=== PATIENT | female | born 1970 | race Caucasian/White ===

== ENCOUNTER 2016-07-02 13:31 | Emergency (ER) | payer SELFPAY ==
[~2016-07-02] VITALS: Ht 149.9 cm; Wt 71.4 kg
[~2016-07-02 13:31] MED LIST: MULT1TAB69 PO; OMEP20TA2 PO
[2016-07-02 13:34] VITALS: Ht 149.9 cm; Wt 71.4 kg
--- OUTSIDE RECORDS SUMMARY | 2016-07-02 13:36 | XMS REPORT ---
Author Author Iva Sears Organization [employer] Address Unknown Phone Unavailable Care Team Providers Care Transfer Controller Name Role Phone Iva Sears CP Unavailable Allergies, Adverse Reactions, Alerts Substance Reaction Event Type Morphine Sulfate swelling/vomiting Drug Allergy mushrooms swelling/vomiting Non Drug Allergy eggs swelling/vomiting Non Drug Allergy Problems Problem Type Condition Code Onset Dates Condition Status Assessment Migraine aura, persistent, intractable G43.519 Active Assessment Nonintractable epilepsy without status epilepticus, unspecified epilepsy type G40.909 Active Medications Medication Code System Code Instructions Start Date End Date Status Dosage Multi For Her [facility] [address] Orally not defined Excedrin Migraine [facility] [address]-45 250-250-65 MG Orally every 6 hrs 2 tablets as needed Levetiracetam [facility] [address]-05 500 MG Orally every 12 hrs September 19, 2015 1 tablet Procedures Procedure Coding System Code Date INJECTION (plus drug) CPT-4 78195 September 19, 2015 TORADOL 30MG CPT-4 J1885 September 19, 2015 PHENERGAN 25MG CPT-4 J2550 September 19, 2015 OFFICE VISIT, EST-LOW COMPLEXITY (15 MIN.) CPT-4 79983 September 19, 2015 Vital Signs Date/Time: September 19, 2015 Temperature 98.8 F Height 51 in Weight 157.0 lbs Blood Pressure Diastolic 92 mm Hg Blood Pressure Systolic 138 mm Hg Cardiac Monitoring Heart Rate 78 /min BMI 42.43 Index Respiratory Rate 16 /min Results No Known Results Summary Purpose [employer] Submission
--- OUTSIDE RECORDS SUMMARY | 2016-07-02 13:36 | XMS REPORT ---
Author Author Iva Sears [facility] [employer] Address Unknown Phone Unavailable Care Team Providers Care Jewel Setter Name Role Phone Iva Sears CP Unavailable Allergies No Known Allergies Problems No Known Problems Medications No Known Medications Results No Known Results Summary Purpose [employer] Submission
--- OUTSIDE RECORDS SUMMARY | 2016-07-02 13:36 | XMS REPORT ---
Author Author Iva Sears [facility] [employer] Address Unknown Phone Unavailable Care Team Providers Care Community Recreation Coordinator Name Role Phone Iva Sears CP Unavailable Allergies No Known Allergies Problems No Known Problems Medications No Known Medications Results No Known Results Summary Purpose [employer] Submission
--- OUTSIDE RECORDS SUMMARY | 2016-07-02 13:36 | XMS REPORT | Continuity of Care Document ---
Author Author [facility] Organization [facility] Address Unknown Phone Unavailable Care Team Providers Care Aerial Sprayer Name Role Phone JASON [place] Primary Care Physician [phone] Insurance Providers Payer Name Policy Number Subscriber Name Relationship [facility] [id number] Sally Qureshi Self / Same As Patient Chief Complaint and Reason for Visit Chief Complaint GI Complaint Reason for Visit Gastroenteritis Problems Medical Problems Problem Onset Date Status Blunt trauma of nose ~02/16/2014 Active Bronchitis Unknown Active Gastroenteritis Unknown Active Medications Medication Dose Route Sig Days/Qty Instructions Order Date Discontinued Date Status Multivitamin 1 Each ORAL DAILY 12/31/12 02/16/14 Discontinued [No Home Meds] 02/16/14 04/22/14 Discontinued Acetaminophen 1,000 Mg ORAL NEEDED 04/22/14 Active Promethazine/Codeine 5 Ml ORAL EVERY 4HRS PRN COUGH 120 Qty 04/22/14 08/16/14 Discontinued Azithromycin 250 Mg ORAL SEE INSTRUCTIONS 6 Qty Day One: Take 2 tablets by mouth Days Two-Five: Take 1 tablet by mouth 04/22/14 08/16/14 Discontinued Ondansetron Hcl 4 Mg ORAL EVERY 4HRS PRN NAUSEA/VOMITING 10 Qty Active Ketorolac Tromethamine 10 Mg ORAL EVERY 6 HOURS PRN PAIN 12 Qty Active Social History No social history. Hospital Discharge Instructions No hospital discharge instructions. Plan of Care Discharge Date 08/16/14 7:30am Disposition 01 HOME OR SELF-CARE Condition at Discharge Stable Instructions/Education Provided Gastroenteritis (ED) Prescriptions See Medications Section Referrals JASON [place] Additional Instructions/Education ED CARYN if any worse. Zofran, Toradol as directed. Follow up with your doctor in 2-3 days if not greatly improved. Some of your test results may not be complete prior to your leaving the Emergency Department. The Emergency Department is not authorized to give test results over the phone. Please contact the doctor's office listed in this packet of information for your final results. Follow up with your primary care physician or return to the Emergency Department for worsening or worrisome symptoms. * Emergency Department phone number: [phone], x [phone]* MEDICAL RECORD If you need copies of your X-rays, call [phone]. If you need copies of your medical record, including lab results, a signed authorization for release of records will be required. A telephone call for release of Health Information is not allowed. BILLING Billing can sometimes be confusing and frustrating. To help avoid confusion in the future, please take a moment to acquaint yourself with the billing parties for services. SERVICE BILLING LIBERTARIAN Emergency Room Services [facility] Physician Services [facility] X-rays [place] [facility] Patients will receive bills for services from the appropriate provider. If you have any questions about your [facility] bill, our staff will be happy to assist you. Please call [phone], and ask for the billing department. THANK YOU for choosing [facility] as your emergency care provider! Functional Status No functional status results. Allergies, Adverse Reactions, Alerts Allergen Type Severity Reaction Status Last Updated Morphine Allergy Unknown Active 08/01/11 Egg Yolk Allergy Active 12/31/12 MUSHROOM Allergy Active 12/31/12 Immunizations No immunization records. Vital Signs Acute Vital Signs Vital Response Date/Time Temperature (Fahrenheit) 97.6 Pulse 85 bpm Respirations 22 Height 4 ft 11 in Weight 155 lb Body Mass Index 31.0 kg/m^2 Results Test Source Date Result Interp. Ref. Range Comments Urine Collection Type August 16, 2014 6:50am Clean catch Urine collection method Clean Catch Urine Leukocyte Esterase August 16, 2014 6:50am Negative Negative Urine collection method Clean Catch Urine Urobilinogen August 16, 2014 6:50am 0.2 mg/dL 0.2-1.0 Urine collection method Clean Catch Urine Bilirubin August 16, 2014 6:50am Negative Negative Urine collection method Clean Catch Urine Nitrite August 16, 2014 6:50am Negative Negative Urine collection method Clean Catch Urine Ketones August 16, 2014 6:50am Negative Negative Urine collection method Clean Catch Urine RBC (Auto) August 16, 2014 6:50am Negative Negative Urine collection method Clean Catch Urine Glucose (UA) August 16, 2014 6:50am Negative Negative Urine collection method Clean Catch Urine Protein August 16, 2014 6:50am Negative Negative Urine collection method Clean Catch Urine Specific [place] August 16, 2014 6:50am 1.020 1.005-1.030 Urine collection method Clean Catch Urine pH August 16, 2014 6:50am 7.0 5.0 - 8.0 Urine collection method Clean Catch Urine Clarity August 16, 2014 6:50am Clear Urine collection method Clean Catch Urine Color August 16, 2014 6:50am Yellow Urine collection method Clean Catch Alanine Aminotransferase (ALT/SGPT) August 16, 2014 6:20am 22 U/L L 30-65 Albumin August 16, 2014 6:20am 3.8 g/dL N 3.4-5.0 Albumin/Globulin Ratio August 16, 2014 6:20am 1.187 N 1.1-1.8 Alkaline Phosphatase August 16, 2014 6:20am 58 U/L N 38-126 Amylase Level August 16, 2014 6:20am 58 U/L N 25-115 Anion Gap August 16, 2014 6:20am 12.3 MEQ/L N 3-15 Aspartate Amino Transf (AST/SGOT) August 16, 2014 6:20am 16 U/L N 15-37 BUN/Creatinine Ratio August 16, 2014 6:20am 18 N 10-20 Basophils # (Auto) August 16, 2014 6:20am 0.0 10^3uL Basophils (%) (Auto) August 16, 2014 6:20am 1 % N 0-2 Blood Urea Nitrogen August 16, 2014 6:20am 15 mg/dL N 7-18 C-Reactive Protein August 16, 2014 6:20am 1.20 mg/dL H 0.0-0.9 Calcium Level August 16, 2014 6:20am 9.1 mg/dL N 8.8-10.8 Calcium/Ionized Calcium Ratio August 16, 2014 6:20am 4.0 mg/dL N 3.8-4.6 Calculated Osmolality August 16, 2014 6:20am 277 mosm/L L 280-300 Carbon Dioxide Level August 16, 2014 6:20am 25 mmol/L N 22-29 Chloride Level August 16, 2014 6:20am 110 mmol/L H 98-108 Clostridium Difficile Toxin A & B December 19, 2012 6:00pm Negative Creatinine August 16, 2014 6:20am 0.84 mg/dL N 0.6-1.2 Eosinophils # (Auto) August 16, 2014 6:20am 0.1 10^3uL Eosinophils (%) (Auto) August 16, 2014 6:20am 2 % N 0-4 Estimat Glomerular Filtration Rate August 16, 2014 6:20am 89.5 Estimated GFR (Non- August 16, 2014 6:20am 74.0 Glucose Level August 16, 2014 6:20am 109 mg/dL N 70-110 Hematocrit August 16, 2014 6:20am 38.80 % N 35.00-45.00 Hemoglobin August 16, 2014 6:20am 13.5 g/dL N 12.0-15.5 Influenza Virus Type A Antibody April 22, 2014 11:47am Negative Influenza Virus Type B Antibody April 22, 2014 11:47am Negative Lipase August 16, 2014 6:20am 101 U/L N 23-300 Lymphocytes # (Auto) August 16, 2014 6:20am 3.0 X10^3 Lymphocytes (%) (Auto) August 16, 2014 6:20am 43 % N 20-46 Mean Corpuscular Hemoglobin August 16, 2014 6:20am 31.0 PG N 26.0-34.0 Mean Corpuscular Hemoglobin Concent August 16, 2014 6:20am 34.8 g/dL N 31.0-37.0 Mean Corpuscular Volume August 16, 2014 6:20am 89 FL N 80-100 Mean Platelet Volume August 16, 2014 6:20am 9.7 FL H 6.0-9.5 Monocytes # (Auto) August 16, 2014 6:20am 0.7 X10^3 Monocytes (%) (Auto) August 16, 2014 6:20am 10 % N 3-11 Neutrophils # (Auto) August 16, 2014 6:20am 3.1 X10^3 Neutrophils (%) (Auto) August 16, 2014 6:20am 45 % L 51-67 Platelet Count August 16, 2014 6:20am 244 10^3uL N 150-450 Potassium Level August 16, 2014 6:20am 4.0 mmol/L N 3.5-5.1 Red Blood Count August 16, 2014 6:20am 4.35 10^6uL N 4.00-5.00 Red Cell Distribution Width August 16, 2014 6:20am 12.5 % N 11.8-15.6 Sodium Level August 16, 2014 6:20am 143 mmol/L N 135-150 Total Bilirubin August 16, 2014 6:20am 0.3 mg/dL N 0.1-1.0 Total Creatine Kinase August 16, 2014 6:20am 86 U/L N 30-135 Total Protein August 16, 2014 6:20am 7.0 g/dL N 6.4-8.5 White Blood Count August 16, 2014 6:20am 6.92 10^3uL N 4.0-11.0 Procedures No known history of procedures. Encounters Encounter Location Date/Time Departed Emergency Room [facility] 08/16/14 5:19am Recent Diagnosis
--- OUTSIDE RECORDS SUMMARY | 2016-07-02 13:36 | XMS REPORT | Continuity of Care Document ---
Author Author [facility] Organization [facility] Address Unknown Phone Unavailable Support Name Relationship Address Phone ADRIANOSHY DEVLIN Bryce Caregiver [address] [place] [address] Unavailable MARY TONY MD Caregiver [address] [place] [address] [place] [address] Unavailable ARCADIO CALVO Next Of Kin [address] [place] [address] Insurance Providers Guarantor Sally Qureshi Address [address] [place] [address] Email [email or web address] Payer [employer] Other Policy Number [id number] Subscriber's Name Henok Qureshiise Relationship 18 Self Group Number [id number] Advance Directives Directive Response Recorded Date/Time Advanced Directives Type None 07/12/15 11:46pm Chief Complaint and Reason for Visit Chief Complaint General Reason for Visit [id number] Headache Problems Active Problems Medical Problem Onset Date Status Abdominal pain Unknown Acute Abnormal vaginal bleeding Unknown Acute Acute viral pharyngitis Unknown Acute Ankle sprain Unknown Acute Dysmenorrhea Unknown Acute Epigastric abdominal pain Unknown Acute Gastroenteritis Unknown Acute Headache Unknown Acute Intertrigo Unknown Acute Menorrhagia Unknown Acute Vomiting Unknown Acute Past Problems Medical Problem Onset Date History of epilepsy Unknown Medications Current Home Medications Medication Dose Units Route Directions Days Qty Instructions Start Date Multivitamin (Multivitamins) 1 Each Tablet 1 Tab Oral Daily 09/29 Omeprazole Magnesium (Prilosec Otc) 20 Mg Tablet. 1 Tab Oral Daily 03/17/15 Past Home Medications Medication Directions Ordered Status Acetaminophen (Tylenol Extra Strength) 500 Mg Tablet, 1-2 Tab Oral Every 6 Hours as needed for Pain 02/04/15 Discontinued Acetaminophen (Tylenol Extra Strength) 500 Mg Tablet, 2 Tab Oral Every 6 Hours as needed for Pain 09/29/14 Discontinued Benzonatate 100 Mg Capsule, 1 Cap Oral Every 8 Hours as needed for Cough Discontinued Ciprofloxacin Hcl 500 Mg Tablet, 1 Tab Oral Every 12 Hours 09/29/14 Discontinued Hydrocodone/Acetaminophen (Hydrocodon-Acetaminophen 5-325) 1 Each Tablet, 1 Tab Oral Every 6 Hours as needed for Pain 09/29/14 Discontinued Norethindrone (Norethindrone Acetate) 5 Mg Tablet, 1 Tab Oral Three Times A Day 09/29/14 Discontinued Ondansetron (Zofran Odt) 4 Mg Tab.rapdis, 4 Mg Oral Every 6 Hours as needed for Nausea &/Or Vomiting 01/11/15 Discontinued Promethazine Hcl/Codeine (Prometh-Codein 6.25-10 Mg/5 Ml) 5 Ml Syrup, 5 Ml Oral Every 6 Hours as needed for Cough 01/11/15 Discontinued Social History Social History Problem Response Recorded Date/Time Onset Date Status Hx Substance Use No 07/12/2015 11:58pm Not Applicable Not Applicable Hx Alcohol Use No 07/12/2015 11:58pm Not Applicable Not Applicable Has the pt used tobacco in the last 12 months Yes 09/30/2014 11:01am Not Applicable Not Applicable Tobacco Usage none 09/14/2014 10:54pm Not Applicable Not Applicable Query Response Start Date Stop Date Smoking Status Never smoker Hospital Discharge Instructions No hospital discharge instructions. Plan of Care Discharge Date 07/13/15 2:00am Disposition 01 DISCHARGED HOME, SELF-CARE Condition at Discharge Stable Instructions/Education Provided Seizure Disorder -- Adult Prescriptions See Medication Section Referrals SHY [place] Address: [address] [place] [id number] Note: Follow-up for reevaluation Care Plan and Goals Physician Care Plan Problem: Headache, not feeling well Goal: Follow up with primary care provider Instructions: Take medications and follow care plan as discussed/written Functional Status No functional status results. Allergies, Adverse Reactions, Alerts Allergen Type Severity Reaction Status Last Updated Mushrooms Allergy Unknown Active 07/12/15 Penicillin Allergy Unknown PER DR ORDER PAGE Active 07/12/15 Egg Derived Allergy Unknown Active 07/12/15 Morphine Allergy Unknown Active 07/12/15 ANYTHING EGG BASED Allergy Unknown Active 06/29/13 Immunizations Query Response on File Recorded Date/Time Hx Influenza Vaccination No 09/30/14 11:01am Hx Pneumococcal Vaccination No 09/30/14 11:01am Hx Influenza Vaccination No 09/30/14 11:01am Influenza Vaccine Hx ALLERGY TO EGGS 07/12/15 11:58pm Vital Signs Acute Vital Signs Vital Response Date/Time Temperature (Fahrenheit) 98.1 deg F (96.8 - 99.1) 07/12/2015 11:46pm Temperature (Calculated Celsius) 36.17386 degrees C (36.0 - 37.3) 07/12/2015 11:46pm Pulse Rate (adult) 81 bpm (60 - 100) 07/13/2015 1:56am Respiratory Rate 18 breaths/min (10 - 20) 07/13/2015 1:56am O2 Sat by Pulse Oximetry 100 % (90 - 100) 07/13/2015 1:56am Blood Pressure 153/97 mm Hg 07/13/2015 1:56am Height (Feet) 4 feet 07/12/2015 11:48pm Height (Inches) 11.00 inches 07/12/2015 11:48pm Weight (Kilograms) 71.000 kg 07/12/2015 11:48pm Body Mass Index (BMI) 31.0 07/12/2015 11:48pm Results Laboratory Results Test Name Result Units Flags Reference Collection Date/Time Result Date/ Time Comments White Blood Count 8.3 T/MM3 4.5-11.0 07/13/2015 12:07/13/2015 12: 28am Red Blood Count 4.50 M/MM3 4.00-5.20 07/13/2015 12:07/13/2015 12: 28am Hemoglobin 13.7 GM/DL 12-16 07/13/2015 12:07/13/2015 12:28am Hematocrit 40.9 % 36-46 07/13/2015 12:07/13/2015 12:28am Mean Corpuscular Volume 90.9 UM3 80-100 07/13/2015 12:07/13/2015 12:28am Mean Corpuscular Hemoglobin 30.4 UUG 26-34 07/13/2015 12:2015 12:28am Mean Corpuscular Hemoglobin Concent 33.5 GM/DL 31-37 07/13/2015 12:07/13/2015 12:28am RDW Standard Deviation 41.8 FL 36.9-50.2 07/13/2015 12:07/13/2015 12:28am Platelet Count 219 T/MM3 130-400 07/13/2015 12:07/13/2015 12:28am Mean Platelet Volume 10.0 UM3 9.4-12.4 07/13/2015 12:07/13/2015 12 :28am Neutrophils (%) (Auto) 52.3 % 33-66 07/13/2015 12:07/13/2015 12: 28am Lymphocytes (%) (Auto) 38.1 % 23-45 07/13/2015 12:07/13/2015 12: 28am Monocytes (%) (Auto) 7.8 % 0-9.0 07/13/2015 12:07/13/2015 12:28am Eosinophils (%) (Auto) 1.2 % 0-4 07/13/2015 12:07/13/2015 12:28am Basophils (%) (Auto) 0.5 % 0-2 07/13/2015 12:07/13/2015 12:28am Immature Granulocyte % (Auto) 0.1 % 0.0-0.5 07/13/2015 12:2015 12:28am Absolute Neutrophils (auto) 4.3 T/MM3 1.8-7.7 07/13/2015 12:2015 12:28am Absolute Lymphocytes (auto) 3.1 T/MM3 1-4.8 07/13/2015 12:2015 12:28am Absolute Monocytes (auto) 0.6 T/MM3 0-0.8 07/13/2015 12:2015 12:28am Absolute Eosinophils (auto) 0.1 T/MM3 0-0.5 07/13/2015 12:2015 12:28am Absolute Basophils (auto) 0.0 T/MM3 0-0.2 07/13/2015 12:2015 12:28am Absolute Immature Granulocyte (auto 0.01 T/MM3 0.00-0.03 07/13/2015 12: 07/13/2015 12:28am D-Dimer < 150 NG/ML 0-230 07/13/2015 12:07/13/2015 12:36am <230 NG/ML D-DU=PRESUMPTIVE NEGATIVE FOR PE OR DVT >230 NG/ML D-DU=ADDITIONAL EVAL FOR PE OR DVT RECOMMENDED Icterus Index < 2 0-7 07/13/2015 12:07/13/2015 12:39am Chemistry Specimen Hemolysis < 15 0-25 07/13/2015 12:07/13/2015 12:39am 0-25: Specimen Exhibited No Hemolysis. Turbidity < 20 0-20 07/13/2015 12:07/13/2015 12:39am Sodium Level 142 MEQ/L 134-144 07/13/2015 12:07/13/2015 12:39am Potassium Level 4.3 MEQ/L 3.6-5 07/13/2015 12:07/13/2015 12:39am Chloride Level 109 MEQ/L H 98-107 07/13/2015 12:07/13/2015 12:39am Carbon Dioxide Level 25 MEQ/L 22-30 07/13/2015 12:07/13/2015 12: 39am Anion Gap 8 MEQ/L 5-15 07/13/2015 12:07/13/2015 12:39am Blood Urea Nitrogen 18.0 MG/DL H 7-17 07/13/2015 12:07/13/2015 12: 39am Creatinine 0.8 MG/DL 0.7-1.2 07/13/2015 12:07/13/2015 12:39am BUN/Creatinine Ratio 23 RATIO 6-26 07/13/2015 12:07/13/2015 12: 39am Glomerular Filtration Rate Calc 78 07/13/2015 12:07/13/2015 12 :39am Glucose Level 116 MG/DL H 65-110 07/13/2015 12:07/13/2015 12:39am Calculated Osmolality 276 MOSM/KG 261-280 07/13/2015 12:2015 12:39am Calcium Level 9.6 MG/DL 8.4-10.2 07/13/2015 12:07/13/2015 12:39am Total Bilirubin 0.20 MG/DL 0.20-1.30 07/13/2015 12:07/13/2015 12: 39am Alkaline Phosphatase 49 U/L 38-126 07/13/2015 12:07/13/2015 12: 39am Total Protein 7.2 G/DL 6.3-8.2 07/13/2015 12:07/13/2015 12:39am Albumin 4.1 G/DL 3.5-5.0 07/13/2015 12:07/13/2015 12:39am Globulin 3.1 G/DL 2.4-3.6 07/13/2015 12:07/13/2015 12:39am Albumin/Globulin Ratio 1.3 RATIO 1.1-2.2 07/13/2015 12:07/13/2015 12:39am Aspartate Amino Transf (AST/SGOT) 14 U/L 14-36 07/13/2015 12:07/12 12:39am Alanine Aminotransferase (ALT/SGPT) 15 U/L 9-52 07/13/2015 12: 12:39am Troponin I < 0.012 ng/ml 0-0.12 07/13/2015 12:07/13/2015 12:51am Troponin values with a difference of 55% increase from orginal troponin value represent a true biological DELTA value. (%increase Calc=Orginal Troponin value, divided by subsequent Troponin value, multiplied by 100) Prolactin 9.9 NG/ML 07/13/2015 12:07/13/2015 12:56am Normal Female (Non-): 3.0-18.6 ng/ml; Males: 3.7-17.9 ng/ml Glucometer 151 mg/dL H 65-110 07/12/2015 11:48pm 07/12/2015 11:50pm Procedures No known history of procedures. Encounters Encounter Location Arrival/Admit Date Discharge/Depart Date Attending Provider Departed Emergency Room [facility] 07/12/15 11:42pm 07/13/15 2: 00am MARY TONY MD Recent Diagnosis
--- OUTSIDE RECORDS SUMMARY | 2016-07-02 13:36 | XMS REPORT | Continuity of Care Document ---
Author Author [facility] Address Unknown Phone Unavailable Allergies Active Description Code Type Severity Reaction Onset Reported/Identified Relationship to Patient Clinical Status Yes morphine [id number] Drug Allergy Unknown N/A 08/01/2011 Yes egg yolk [id number] Drug Allergy Unknown N/A 12/31/2012 Yes MUSHROOM MUSHROOM Unknown N/A 12/31/2012 Medications Problems Date Dx Coded Attending Type Code Diagnosis Diagnosed By 01/15/2013 KARL BIANCHI MD Ot 211.1 01/15/2013 KARL BIANCHI MD Ot 345.90 01/15/2013 KARL BIANCHI MD Ot 455.0 01/15/2013 KARL BIANCHI MD Ot 530.11 01/15/2013 KARL BIANCHI MD Ot 553.3 02/16/2014 SOPHIE PUENTE, COLEEN Ot 920 02/16/2014 SOPHIE PUENTE, COLEEN Ot E917.9 08/16/2014 RAHUL ARMENDARIZ MD Ot 558.9 08/16/2014 RAHUL ARMENDARIZ MD Ot 787.01 Procedures Results Encounters ACCT No. Visit Date/Time Discharge Status Pt. Type Provider Facility Loc./Unit Complaint [id number] 08/16/2014 05:19:00 2014 07:30:00 DIS Emergency RAHUL ARMENDARIZ MD [facility] ED [id number] 02/16/2014 20:09:00 2013 22:05:00 DIS Emergency SOPHIE PUENTE, COLEEN [facility] ED [id number] 01/15/2013 09:34:00 2012 12:20:00 DIS Outpatient KARL BIANCHI MD [facility] [id number] 12/21/2012 10:55:00 2012 23:59:59 CLS Outpatient [id number] 04/22/2014 10:30:00 Document Registration
--- OUTSIDE RECORDS SUMMARY | 2016-07-02 13:36 | XMS REPORT | Continuity of Care Document ---
Author Author [facility] Organization [facility] Address Unknown Phone Unavailable Care Team Providers Care Brand Mgr Name Role Phone JASON [place] Primary Care Physician [phone] Insurance Providers Payer Name Policy Number Subscriber Name Relationship [facility] [id number] Sally Qureshi Self / Same As Patient Chief Complaint and Reason for Visit Chief Complaint Respiratory Complaint Reason for Visit Bronchitis Problems Medical Problems Problem Onset Date Status Blunt trauma of nose ~02/16/2014 Active Bronchitis Unknown Active Medications Medication Dose Route Sig Days/Qty Instructions Order Date Discontinued Date Status Multivitamin 1 Each ORAL DAILY 12/31/12 02/16/14 Discontinued [No Home Meds] 02/16/14 04/22/14 Discontinued Acetaminophen 1,000 Mg ORAL NEEDED 04/22/14 Active Promethazine/Codeine 5 Ml ORAL EVERY 4HRS PRN COUGH 120 Qty 04/22/14 Active Azithromycin 250 Mg ORAL SEE INSTRUCTIONS 6 Qty Day One: Take 2 tablets by mouth Days Two-Five: Take 1 tablet by mouth 04/22/14 Active Social History No social history. Hospital Discharge Instructions No hospital discharge instructions. Plan of Care Discharge Date 04/22/14 1:46pm Disposition 01 HOME OR SELF-CARE Condition at Discharge Stable Instructions/Education Provided Acute Bronchitis (ED) Prescriptions See Medications Section Referrals JASON [place] Additional Instructions/Education Zpack as directed Phenergan with codeine - 1 teaspoon every 4-6 hour as needed for cough Albuterol inhaler 1-2 puffs every 6 hours as needed Return if symptoms worsen Some of your test results may not [...] worrisome symptoms. * Emergency Department phone number: [phone], x [phone]* MEDICAL RECORD If you need copies of your X-rays, call [phone] x [phone]. If you need copies of [...] the billing parties for services. [employer] Emergency Room Services [facility] Physician Services [facility] X-[facility] [place] [facility] Patients will receive bills for services from the appropriate provider. If you have any questions about your [facility] bill, our staff will be happy to assist you. Please call [phone], and ask for the billing department. THANK YOU for choosing [facility] as your emergency care provider! Functional Status No functional status results. Allergies, Adverse Reactions, Alerts Allergen Type Severity Reaction Status Last Updated Morphine Allergy Unknown Active 08/01/11 Egg Yolk Allergy Active 12/31/12 MUSHROOM Allergy Active 12/31/12 Immunizations No immunization records. Vital Signs Acute Vital Signs Vital Response Date/Time Temperature (Fahrenheit) 98.1 Pulse 120 bpm Respirations 22 Height 4 ft 11 in Weight 152 lb Body Mass Index 30.0 kg/m^2 Results Test Source Date Result Interp. Ref. Range Comments Albumin/Globulin Ratio April 22, 2014 11:46am 1.375 N 1.1-1.8 Albumin April 22, 2014 11:46am 4.4 g/dL N 3.4-5.0 Total Protein April 22, 2014 11:46am 7.6 g/dL N 6.4-8.5 Alanine Aminotransferase (ALT/SGPT) April 22, 2014 11:46am 21 U/L L 30-65 Aspartate Amino Transf (AST/SGOT) April 22, 2014 11:46am 16 U/L N 15- 37 Alkaline Phosphatase April 22, 2014 11:46am 63 U/L N 38-126 Total Bilirubin April 22, 2014 11:46am 0.4 mg/dL N 0.1-1.0 Calcium/Ionized Calcium Ratio April 22, 2014 11:46am 4.0 mg/dL N 3.8- 4.6 Calcium Level April 22, 2014 11:46am 9.4 mg/dL N 8.8-10.8 Calculated Osmolality April 22, 2014 11:46am 276 mosm/L L 280-300 Glucose Level April 22, 2014 11:46am 104 mg/dL N 70-110 Estimated GFR (Non- April 22, 2014 11:46am 65.3 Estimat Glomerular Filtration Rate April 22, 2014 11:46am 79.0 BUN/Creatinine Ratio April 22, 2014 11:46am 17 N 10-20 Creatinine April 22, 2014 11:46am 0.94 mg/dL N 0.6-1.2 Blood Urea Nitrogen April 22, 2014 11:46am 16 mg/dL N 7-18 Anion Gap April 22, 2014 11:46am 14.4 MEQ/L N 3-15 Carbon Dioxide Level April 22, 2014 11:46am 25 mmol/L N 22-29 Chloride Level April 22, 2014 11:46am 107 mmol/L N 98-108 Potassium Level April 22, 2014 11:46am 4.2 mmol/L N 3.5-5.1 Sodium Level April 22, 2014 11:46am 142 mmol/L N 135-150 Influenza Virus Type B Antibody April 22, 2014 11:47am Negative Influenza Virus Type A Antibody April 22, 2014 11:47am Negative Basophils # (Auto) April 22, 2014 11:46am 0.1 10^3uL Basophils (%) (Auto) April 22, 2014 11:46am 1 % N 0-2 Clostridium Difficile Toxin A & B December 19, 2012 6:00pm Negative Eosinophils # (Auto) April 22, 2014 11:46am 0.1 10^3uL Eosinophils (%) (Auto) April 22, 2014 11:46am 2 % N 0-4 Hematocrit April 22, 2014 11:46am 41.40 % N 35.00-45.00 Hemoglobin April 22, 2014 11:46am 14.1 g/dL N 12.0-15.5 Lymphocytes # (Auto) April 22, 2014 11:46am 2.0 X10^3 Lymphocytes (%) (Auto) April 22, 2014 11:46am 30 % N 20-46 Mean Corpuscular Hemoglobin April 22, 2014 11:46am 29.9 PG N 26.0- 34.0 Mean Corpuscular Hemoglobin Concent April 22, 2014 11:46am 34.1 g/dL N 31.0-37.0 Mean Corpuscular Volume April 22, 2014 11:46am 88 FL N 80-100 Mean Platelet Volume April 22, 2014 11:46am 10.0 FL H 6.0-9.5 Monocytes # (Auto) April 22, 2014 11:46am 0.5 X10^3 Monocytes (%) (Auto) April 22, 2014 11:46am 8 % N 3-11 Neutrophils # (Auto) April 22, 2014 11:46am 4.0 X10^3 Neutrophils (%) (Auto) April 22, 2014 11:46am 60 % N 51-67 Platelet Count April 22, 2014 11:46am 293 10^3uL N 150-450 Red Blood Count April 22, 2014 11:46am 4.71 10^6uL N 4.00-5.00 Red Cell Distribution Width April 22, 2014 11:46am 12.2 % N 11.8- 15.6 White Blood Count April 22, 2014 11:46am 6.74 10^3uL N 4.0-11.0 Procedures No known history of procedures. Encounters Encounter Location Date/Time Departed Emergency Room [facility] 04/22/14 10:31am Recent Diagnosis
--- NOTE | 2016-07-02 13:44 | NUR ---
HIPOLITO LORENZANA IN
[2016-07-02] MEDS ORDERED: NORMAL SALINE 1,000 ML IV ONE (13:45)
[2016-07-02] MEDS ORDERED: KETOROLAC 30mg/ml INJECTION IV ONE (13:45)
--- NOTE | 2016-07-02 13:51 | ERPDOC ---
Departure Disposition Decision Date: July 02, 2016 Disposition Decision Time: 15:46 Disposition: 01 DISCHARGED HOME, SELF-CARE Impression Impression Impression: Primary Impression: Seizure Additional Impression: Contusion of rib Encounter type: initial encounter Laterality: right Qualified Codes: S20.211A - Contusion of right front wall of thorax, initial encounter Severity: Moderate Condition: Stable Seen By: Mid-level only Referrals: CHEYANNE WELLS APRN (Family) Patient Instructions: Contusion in Adults (ED) Problems/Meds/Labs Reviewed?: Yes Medications reviewed and manag: Yes Additional Instructions: The xrays today do not show a fracture. Your labs today appear normal as well. I do want you to go home and rest today. Make sure that you are drinking plenty of fluids. May use Ibuprofen and the Hyampom as needed for pain at home. If you have any further issues/concerns then please follow up with your primary care provider for reevaluation. Follow up care ordered?: Yes Mental Status: Alert Scripts Hydrocodone/Acetaminophen (Hyampom 5-325 Tablet) 5-325 Tablet 1 TAB PO Q6H Y for PAIN, #12 TAB 0 Refills Prov: USAMA CRUZ Sonny LORENZANA 07/02/16 HPI - General Medical General Chief Complaint: Seizure Stated Complaint: SEIZURE , FALL Time Seen by Provider: 13:39 Source: patient Exam Limitations: no limitations HPI - General Medical Initial Comments She has a history of seizures in the past. Her seizure dog today was very active so she was trying to get to the couch to lay down. Just remembers her legs getting weak and then waking up on the floor. She thinks that she hit her right side on the cough. Is having pain in the back as well as the right ribs with taking a deep breath. Has been taking her seizure medication as prescribed and has not felt unwell lately at all. Occurred At: home Onset: Rapid Duration: 1 hr Severity: moderate Associated Symptoms: malaise, seizure, weakness, DENIES: chest pain, cough, diaphoresis, fever/chills, headaches, loss of appetite, nausea/vomiting, rash, shortness of breath, syncope Hx of Similar Symptoms: No Allergies: Coded Allergies: Egg Derived (Verified Allergy, Unknown, 07/02/16) Mushrooms (Verified Allergy, Unknown, 07/02/16) Penicillins (Verified Allergy, Unknown, PER ORDER PAGE, 07/02/16) morphine (Verified Allergy, Unknown, 07/02/16) Uncoded Allergies: ANYTHING EGG BASED (Allergy, Unknown, 06/29/13) Past History Patient Surgical History Hysterectomy Nasal surgery. Adenoidectomy Past Medical History Respiratory: asthma GI: GERD Neurological: seizures Surgical History General: appendix Reproductive/: , hysterectomy Vaccines Hx Influenza Vaccination: No Hx Pneumococcal Vaccination: No Review of Systems Constitutional Constitutional: dizziness, fatigue, weakness, DENIES: chills, fever Eyes Vision: DENIES: blurring, double vision ENMT Ears: DENIES: drainage, pain Sinuses: DENIES: congestion, rhinorrhea Mouth/Throat: DENIES: painful swallowing, scratchy throat, sore throat Cardiovascular Cardiac: DENIES: chest pain, orthopnea Rhythm/Rate: DENIES: irregular beat, palpitations Pulmonary Respiratory: DENIES: cough, dyspnea, sputum, tachypnea GI Upper Abdomen: DENIES: nausea, pain, vomiting Lower Abdomen: DENIES: constipation, diarrhea, pain Integumentary Skin: DENIES: rash Neurological General: DENIES: headache, numbness, tingling, weakness Physical Exam General General Nourishment: well nourished, well developed, appears stated age, no acute distress, adult General Body Habitus: well groomed Vitals and Pain First Documented Vital Signs Date Time Temp Pulse Resp B/P Pulse Ox O2 Delivery O2 Flow Rate FiO2 07/02/16 13:34 97.8 83 14 158/60 99 Room Air Weight: Kilograms: Height (feet): 4 Height (inches): 11.00 Triage Pain Scale: RN VS reviewed by Provider: Yes Normal Exams: Head: Normocephalic w/o trauma Eyes: Pupils are PERRLA w/ EOMI, No scleral icterus, irritation, or foreign bodies noted ENMT: No facial trauma, nasal exudates, pharyngeal erythema, or exudates are noted Neck: Full range of motion, without adenopathy, JVD, bruits or thyromegaly Chest/Resp: Clear all browne, with good airflow, and symmetry bilaterally CV: Regular rate and rhythm, without murmur or gallop, Pulses 2+ all extremities, capillary refill, <2 seconds all ext., no pedal edema noted Abdomen: Bowel sounds positive, soft, non-tender, non-distended, no hepatosplenomegaly, masses or bruits noted Lymphatic: No lymphadenopathy, or lymphedema noted Integumentary: No rashes, hives, or bruising noted Neurologic: Patient is alert, and oriented, cranial nerves, motor/sensory/ cerebellar, exams w/o gross deficits, to observation Psychiatric: Patient exhibits, appropriate attention, emotion and affect Respiratory (brief) Respiratory: FOUND: tenderness (TTP along the thoracic spine but without TTP along the cervical spine or the lumbar spine. She is tender all over the posterior and anterior right ribs as well. No other injuries noted.) Differential Diagnoses Considering: Hypo/Hyperglycemia, Hypo/Hyperkalemia, Hypo/Hypernatremia, Medication Effect, Other (rib fracture, spinal fracture) Progress Results/Orders Orders Procedure Category Date Status Time Thoracic Spine RAD 07/02/16 Resulted Series, 3 View Ribs Right With Ap RAD 07/02/16 Resulted Chest Cbc W/Auto LAB 07/02/16 Complete Diff-Reflex Manual Cmp - Comprehensive LAB 07/02/16 Complete Metabolic Iv Lock (Ed Only) EDM 07/02/16 Transmitted 13:45 Normal Saline (Normal PHA 07/02/16 Complete Saline Iv) 13:45 Ketorolac (Toradol) PHA 07/02/16 Complete 13:45 Ua, Dip Wreflex LAB 07/02/16 Complete [employer] 15:29 Lab Results Laboratory Tests Test 07/02/16 13:59 07/02/16 15:30 White Blood Count 7.0T/MM3 Red Blood Count 4.35M/MM3 Hemoglobin 13.2GM/DL Hematocrit 39.3% Mean Corpuscular Volume 90.3UM3 Mean Corpuscular Hemoglobin 30.3UUG Mean Corpuscular Hemoglobin Concent 33.6GM/DL RDW Standard Deviation 41.9FL Platelet Count 217T/MM3 Mean Platelet Volume 9.8UM3 Immature Granulocyte % (Auto) 0.1% Neutrophils (%) (Auto) 51.3% Lymphocytes (%) (Auto) 41.5% Monocytes (%) (Auto) 5.7% Eosinophils (%) (Auto) 1.0% Basophils (%) (Auto) 0.4% Absolute Immature Granulocyte (auto 0.01T/MM3 Absolute Neutrophils (auto) 3.6T/MM3 Absolute Lymphocytes (auto) 2.9T/MM3 Absolute Monocytes (auto) 0.4T/MM3 Absolute Eosinophils (auto) 0.1T/MM3 Absolute Basophils (auto) 0.0T/MM3 Turbidity < 20 Sodium Level 146MEQ/L Potassium Level 4.4MEQ/L Chloride Level 112MEQ/L Carbon Dioxide Level 23MEQ/L Anion Gap 11MEQ/L Blood Urea Nitrogen 20.0MG/DL Creatinine 0.8MG/DL Glomerular Filtration Rate Calc 78 BUN/Creatinine Ratio 25RATIO Glucose Level 94MG/DL Calculated Osmolality 284MOSM/KG Calcium Level 9.4MG/DL Total Bilirubin 0.50MG/DL Icterus Index < 2 Aspartate Amino Transf (AST/SGOT) 12U/L Alanine Aminotransferase (ALT/SGPT) 26U/L Alkaline Phosphatase 47U/L Total Protein 6.5G/DL Albumin 3.7G/DL Globulin 2.8G/DL Albumin/Globulin Ratio 1.3RATIO Chemistry Specimen Hemolysis < 15 Urine Collection Type Cleancatch-midstream Urine Color Yellow Urine Turbidity Clear Urine pH 7.0 Urine Specific [place] <=1.005 Urine Protein Negative Urine Glucose (UA) Negative Urine Ketones Negative Urine Blood Negative Urine Nitrite Negative Urine Bilirubin Negative Urine Urobilinogen 0.2EU/DL Urine Leukocyte Esterase Negative Urinalysis Comment Microscopic not ind. Medications Current ED Medications Sodium Chloride (Normal Saline IV) 1,000 ml @ 1,000 mls/hr Q1H ONCE IV Last administered on 07/02/16 14:17; Start 07/02/16 at 13:45; Stop 07/02/16 at 14:44; Status DC Ketorolac Tromethamine (Toradol) 30 mg O ONCE IV Last administered on t 14:17; Start 07/02/16 at 13:45; Stop 07/02/16 at 13:47; Status DC Progress Progress Xrays today are normal. CBC, BMP, and UA are normal as well. Her pain is improved with the toradol. Will go ahead and let her go home. She will continue to take her home medications. Will go ahead and give her some Hyampom for the pain and have her rest. FU with her PCP if any further issues/concerns. Xray Xray #1: Reason for Exam: right rib pain Xray: Ribs R Interpretation: Normal Xray #2: Reason for Exam: back pain post fall Xray: T-Spine Interpretation: Normal USAMA CRUZ APRN July 02, 2016 13:51
[2016-07-02 14:09] LABS: BASOPHILS % (AUTO) 0.4 % (0-2); EOSINOPHILS # (AUTO) 0.1 T/MM3 (0-0.5); HCT - HEMATOCRIT 39.3 % (36-46); HGB - HEMOGLOBIN 13.2 GM/DL (12-16); IMMATURE GRANULOCYTE # (AUTO) 0.01 T/MM3 (0.00-0.03); IMMATURE GRANULOCYTE % (AUTO) 0.1 % (0.0-0.5); LYMPHOCYTES # (AUTO) 2.9 T/MM3 (1-4.8); LYMPHOCYTES % (AUTO) 41.5 % (23-45); MEAN CORPUSCULAR HGB 30.3 UUG (26-34); MEAN CORPUSCULAR HGB CONC(MCHC 33.6 GM/DL (31-37); MEAN CORPUSCULAR VOLUME 90.3 UM3 (80-100); MEAN PLATELET VOLUME 9.8 UM3 (9.4-12.4); MONOCYTES # (AUTO) 0.4 T/MM3 (0-0.8); MONOCYTES % (AUTO) 5.7 % (0-9.0); NEUTROPHILS #(AUTO)-ABSOLUTE 3.6 T/MM3 (1.8-7.7); NEUTROPHILS % (AUTO) 51.3 % (33-66); RED BLOOD COUNT 4.35 M/MM3 (4.00-5.20)
--- OUTSIDE RECORDS SUMMARY | 2016-07-02 14:16 | XMS REPORT | Continuity of Care Document ---
Author Author [facility] Organization [facility] Address Unknown Phone Unavailable Care Team Providers Care Rollway Man Name Role Phone JASON [place] Primary Care Physician [phone] Insurance Providers Payer Name Policy Number Subscriber Name Relationship [facility] [id number] Sally Qureshi Self / Same As Patient [...] worrisome symptoms. * Emergency Department phone number: [phone], x 543* MEDICAL RECORD If you need copies of your X-rays, call [phone] x [phone]. If you need copies of [...] [employer] Emergency Room Services [facility] Physician Services [facility] X-rays [place] [facility] Patients will receive bills for services from the appropriate provider. If you have any questions about your [facility] bill, our staff will be happy to assist you. Please call [phone], and ask for the billing department. THANK YOU for choosing [facility] as your emergency care provider! Functional Status [...] Urine collection method Clean Catch Urine Specific [place] August 16, 2014 6:50am 1.020 1.005-1.030 Urine [...] Encounters Encounter Location Date/Time Departed Emergency Room [facility] 08/16/14 5:19am Recent Diagnosis
--- OUTSIDE RECORDS SUMMARY | 2016-07-02 14:16 | XMS REPORT | Continuity of Care Document ---
Author Author [facility] Organization [facility] Address Unknown Phone Unavailable Care Team Providers Care Retail Sales Associate Seasonal Name Role Phone JASON [place] Primary Care Physician [phone] Insurance Providers Payer Name Policy Number Subscriber Name Relationship [facility] [id number] Sally Qureshi Self / Same As Patient [...] worrisome symptoms. * Emergency Department phone number: [phone], x 543* MEDICAL RECORD If you need copies of your X-rays, call [phone] x [phone]. If you need copies of [...] [employer] Emergency Room Services [facility] Physician Services [facility] X-rays [place] [facility] Patients will receive bills for services from the appropriate provider. If you have any questions about your [facility] bill, our staff will be happy to assist you. Please call [phone], and ask for the billing department. THANK YOU for choosing [facility] as your emergency care provider! Functional Status [...] Encounters Encounter Location Date/Time Departed Emergency Room [facility] 04/22/14 10:31am Recent Diagnosis
--- OUTSIDE RECORDS SUMMARY | 2016-07-02 14:16 | XMS REPORT | Continuity of Care Document ---
Author Author [facility] Address Unknown Phone Unavailable Allergies Active Description Code Type Severity Reaction Onset Reported/Identified Relationship to Patient Clinical Status Yes morphine [id number] Drug Allergy Unknown N/A 08/01/2011 Yes egg yolk [id number] Drug Allergy Unknown N/A 12/31/2012 Yes MUSHROOM MUSHROOM Unknown N/A 12/31/2012 Medications Problems Date Dx Coded Attending Type Code Diagnosis Diagnosed By 01/15/2013 KARL BIANCHI MD Ot 211.1 01/15/2013 KARL BIANCHI MD Ot 345.90 01/15/2013 KARL BIANCHI MD Ot 455.0 01/15/2013 KARL BIANCHI MD Ot 530.11 01/15/2013 KALR BIANCHI MD Ot 553.3 02/16/2014 SOPHIE PUENTE, COLEEN Ot 920 02/16/2014 SOPHIE PUENTE, COLEEN Ot E917.9 08/16/2014 RAHUL ARMENDARIZ MD Ot 558.9 08/16/2014 RAHUL ARMENDARIZ MD Ot 787.01 Procedures Results Encounters ACCT No. Visit Date/Time Discharge Status Pt. Type Provider Facility Loc./Unit Complaint [id number] 08/16/2014 05:19:00 2014 07:30:00 DIS Emergency RAHUL ARMENDARIZ MD [facility] ED [id number] 02/16/2014 20:09:00 2013 22:05:00 DIS Emergency SOPHIE PUENTE, COLEEN [facility] ED [id number] 01/15/2013 09:34:00 2012 12:20:00 DIS Outpatient KARL BIANCHI MD [facility] [id number] 12/21/2012 10:55:00 2012 23:59:59 CLS Outpatient [id number] 04/22/2014 10:30:00 Document Registration
[2016-07-02 14:17] LABS: ALBUMIN 3.7 G/DL (3.5-5.0); ALBUMIN/GLOBULIN RATIO 1.3 RATIO (1.1-2.2); ALKALINE PHOSPHATASE 47 U/L (38-126); ALT (SGPT) 26 U/L (9-52); ANION GAP 11 MEQ/L (5-15); AST (SGOT) 12 U/L (14-36); BUN/CREATININE RATIO 25 RATIO (6-26); CALCIUM 9.4 MG/DL (8.4-10.2); CHLORIDE 112 MEQ/L (98-107); CO2 - CARBON DIOXIDE 23 MEQ/L (22-30); CREATININE 0.8 MG/DL (0.7-1.2); GLOMERULAR FILTRATION RATE 78; GLUCOSE 94 MG/DL (65-110); POTASSIUM 4.4 MEQ/L (3.6-5); SODIUM 146 MEQ/L (134-144); TOTAL PROTEIN 6.5 G/DL (6.3-8.2)
[2016-07-02] MEDS ORDERED: GABA-338 PO (14:23)
[2016-07-02] MEDS ORDERED: LEVE500T26 PO (14:23)
--- NOTE | 2016-07-02 14:26 | NUR ---
TO [facility] PER CART
--- NOTE | 2016-07-02 14:48 | NUR ---
RETURNED FROM [facility]
--- NOTE | 2016-07-02 15:24 | NUR ---
ACTIVITY AMB TO BR. NO DIZZINESS. SAYS SHE IS STIFF.
--- NOTE | 2016-07-02 15:25 | DI ---
Indication: ITS.REASON: fall, right rib pain PROCEDURE: RIBS RIGHT WITH AP CHEST: Comparison: None FINDINGS: Chest: The lungs are clear. There is no abnormal airspace opacity, pleural effusion or pneumothorax identified. The heart size, pulmonary vasculature and mediastinum are within normal limits. AP and oblique views of the right ribs: There is cortical thickening demonstrated about the posterior right eighth rib may reflect a chronic healed fracture deformity. No obvious acute displaced fractures are identified. IMPRESSION: 1. No acute cardiopulmonary abnormality. 2. Probable chronic healed right posterior eighth rib fracture. No definite acute right-sided rib fracture deformities identified. .
--- NOTE | 2016-07-02 15:27 | DI ---
EXAM: THORACIC SPINE SERIES, 3 VIEW LOCATION OF DICTATION: [place] HISTORY: ITS.REASON: fall, mid back pain COMPARISON: No prior studies available for comparison. TECHNIQUE: FINDINGS: There is normal and the thoracic spine with preservation of thoracic arthrosis. There are no acute fractures identified. Anterior cervical disc fusion is noted in the lower cervical spine. There is [id number] spondylosis of the thoracic spine. Normal osseous mineralization. Impression: 1. No evidence for fracture or malalignment involving the thoracic spine. 2. Mild to moderate spondylosis. .
[2016-07-02 15:40] LABS: BLOOD, URINE NEGATIVE (NEGATIVE); COLOR,URINE YELLOW (YELLOW); LEUKOCYTE ESTERASE ,URINE NEGATIVE (NEGATIVE); NITRITE,URINE NEGATIVE (NEGATIVE); UROBILINOGEN,URINE 0.2 EU/DL (NORMAL)
[2016-07-02] MEDS ORDERED: HYDR-4246 PO (15:49)
--- NOTE | 2016-07-02 16:04 | NUR ---
DISMISSAL WALKS SLOWLY. SAYS SHE IS SORE. VERBALIZES UNDERSTANDING OF INSTRUCTIONS.
[2016-07-02 16:16] VITALS: BP 128/70; PULSE 78; RESP 16; TEMP 98.2; O2SAT 100
== END 2016-07-02 16:04 | disposition home or self-care (01) ==
LOC: ED 13:31
DX: R56.9 Unspecified convulsions (principal); S20.211A Contusion of right front wall of thorax, initial encounter; X58.XXXA Exposure to other specified factors, initial encounter; Y93.89 Activity, other specified; Y92.008 Other place in unspecified non-institutional (private) residence as the place of occurrence of the external cause; Y99.8 Other external cause status
CPT/HCPCS: 80053; 81003; 85025